=== PATIENT | female | born 1975 | race Caucasian/White ===

== ENCOUNTER 2019-09-23 07:52 | Emergency (ER) | payer BC, SELFPAY ==
[2019-09-23 08:01] VITALS: BP 155/104; PULSE 140; RESP 18; TEMP 36.7; O2SAT 100; BMI 27.8
--- NOTE | 2019-09-23 08:05 | W.ED.GENADLT ---
HPI - General Adult General: Chief complaint: Shortness of Breath/Dyspnea Stated complaint: SOB Time Seen by Provider: 09/23/19 08:04 Source: patient Mode of arrival: ambulatory Limitations: no limitations History of Present Illness: HPI narrative: Patient comes in this morning with complaints of shortness of breath. Patient states that she has had 2 episodes of shortness of breath this morning 1 that was short when she first got up. She was then able to get up and get around without any difficulty and then as walking up the stairs to come to work she felt increased shortness of breath again. Patient appears anxious. Patient appears in mild to moderate discomfort. Patient is tachycardic with elevated blood pressure. Patient denies any previous episodes of PSVT or WPW. Patient does take routine control, and is at a sedentary job, denies any recent fever or illness. Patient reports on father's side has extensive heart disease with him having first heart attack at 45. Associated symptoms: Reports dyspnea Review of Systems General: Reports: 10 or more systems reviewed and unremarkable except in HPI and below Resp: Reports: shortness of breath [facility] PFSH: Social History Smoking and tobacco status: never smoked Physical Exam Const: COMMON NORMALS: no apparent distress and oriented x3 GENERAL APPEARANCE: cooperative HENMT: COMMON NORMALS: normocephalic, TM's normal bilaterally and external nose normal HEAD & SCALP: normal to inspection and normocephalic NOSE: external nose normal TYMPANIC MEMBRANE: TM's normal bilaterally MOUTH: oral and palatal mucosa normal THROAT: posterior oropharynx normal Eye: GENERAL EYE: normal appearance of both eyes Neck/C-Spine: COMMON NORMALS: full ROM Lymph: LYMPHATIC: no lymphadenopathy noted Chest: COMMONS NORMALS: inspection of chest normal Resp: COMMON NORMALS: normal respiratory effort EFFORT & INSPECTION: Yes able to speak in complete sentences Cardio: COMMON NORMALS: regular rhythm RATE: tachycardic RHYTHM: regular rhythm GI: COMMON NORMALS: non-tender : COMMON NORMALS: Yes no CVA tenderness BLADDER/KIDNEY EXAM: Yes no CVA tenderness Back/Pelvis: COMMON NORMALS: no CVA tenderness and thoracic and lumbar spine normal to inspection Extremity: COMMON NORMALS: normal to inspection Neuro: COMMON NORMALS: oriented x3 and moves all extremities Psych: COMMON NORMALS: mental status grossly normal and cooperative Skin: COMMON NORMALS: no rashes or lesions noted GENERAL SKIN EXAM: no rashes or lesions noted Course ED course: 1000, patient given 2.5 metoprolol for sinus tach, rate after 15 minutes down to 100's, repeat of 5 mg, PE scan negative, first troponin negative. wjw Vital Signs: Vital signs: Vital Signs Temperature 98.1 F 09/23/19 08:01 Pulse Rate 140 H 09/23/19 08:01 Respiratory Rate 18 09/23/19 08:01 Blood Pressure 155/104 09/23/19 08:01 Pulse Oximetry 100 09/23/19 08:01 MDM - General Adult MDM Narrative: Medical decision making narrative: 44-year-old female comes in today with complaints of chest discomfort and shortness of breath. Exam notes sinus tachycardia with rate of 140s to 150s. No edema is noted in the extremities. Skin is warm and dry. Abdomen soft nontender. Differential diagnosis includes infection, ACS, PE, idiopathic sinus tachycardia. CTA scan of the chest noted no PE or other abnormalities. First and 2-hour troponins were negative. CBC was normal without any signs of anemia. CMP showed a increase and glucose but otherwise normal. Reviewed exam with patient recommended treatment with increasing her metoprolol from 50 to 75 mg. Recommend follow-up with cardiology for further treatment and evaluation. Reviewed reasons to return to the ER. Patient reports understanding agreed to plan. Lab Data: Labs: Lab Results 09/23/19 09/23/19 09/23/19 Range/Units 08:10 08:10 08:25 WBC (4.0-10.0) 10^3/ uL RBC (4.1-5.3) 10^6/u L Hgb (11.5-15.3) g/dL Hct (37.0-47.0) % MCV (81-99) fL MCH (28.0-34.0) pg MCHC (30.0-36.0) g/dL RDW (12.1-15.1) % Plt Count (130-400) 10^3/c mm MPV (7.4-10.4) fL Neut % (Auto) % Lymph % (Auto) % [place] % (Auto) % Eos % (Auto) % Baso % (Auto) % Neut # (Auto) (1.8-7.7) 10^3/u L Lymph # (Auto) (0.8-4.8) 10^3/u L [place] # (Auto) (0.2-0.9) 10^3/u L Eos # (Auto) (0.0-0.8) 10^3/u L Baso # (Auto) (0.0-0.1) 10^3/u L Nucleated RBC % (a uto) % Nucleated RBCs # /100WBC PT 12.70 (10.5-13.3) SECO NDS INR 0.92 (0.8-1.2) APTT 33.4 (23.9-36.7) SECO NDS D-Dimer (0-0.59) ug/mIFE U Sodium (136-145) mmol/L Potassium (3.5-5.1) mmol/L Chloride (98-107) mmol/L Carbon Dioxide (22-29) mmol/L Anion Gap (5-19) BUN (6-20) mg/dL Creatinine (0.5-0.9) mg/dL GFR Calculation (90-130) mL/min Glucose (65-115) mg/dL Calculated Osmolal ity (285-295) mOsm/k g Calcium (8.5-10.5) mg/dL Total Bilirubin (0.15-1.2) mg/dL AST (0-32) U/L ALT (0-33) U/L Alkaline Phosphata se (35-105) IU/L Troponin T Baselin e (0-10) ng/mL Troponin T 120 Min kanchan (0-10) ng/mL Delta Troponin T (0-10) ABS# Total Protein (6.6-8.7) g/dL Albumin (3.5-5.2) g/dL Globulin (1.3-4.6) g/dL TSH (0.27-4.20) uIU/ mL Urine Color Colorless (Yellow) Urine Appearance Clear (CLEAR) Urine pH 5.0 (5-7) Ur Specific Gravit y 1.010 (1.005-1.030) Urine Protein Neg (Negative) Urine Glucose (UA) Norm (Normal) Urine Ketones Negative (Negative) Urine Blood Neg (Negative) Urine Nitrate Negative (Negative) Urine Bilirubin Neg (NEGATIVE) Urine Urobilinogen Norm (Negative) mg/dL Ur Leukocyte Dee [place] Negative (Negative) Urine Opiates Scre en Negative (Negative) ng/mL Ur Barbiturates Sc reen Negative (Negative) ng/mL Ur Phencyclidine S crn Negative (Negative) ng/mL Ur Amphetamines Sc reen Negative (Negative) ng/mL U Benzodiazepines Scrn Negative (Negative) ng/mL Urine Cocaine Scre en Negative (Negative) ng/mL U Marijuana (THC) Screen Negative (Negative) ng/mL 09/23/19 09/23/19 09/23/19 Range/Units 08:25 08:28 08:28 WBC 7.3 (4.0-10.0) 10^3/ uL RBC 4.93 (4.1-5.3) 10^6/u L Hgb 14.7 (11.5-15.3) g/dL Hct 43.8 (37.0-47.0) % MCV 88.8 (81-99) fL MCH 29.8 (28.0-34.0) pg MCHC 33.6 (30.0-36.0) g/dL RDW 12.6 (12.1-15.1) % Plt Count 252 (130-400) 10^3/c mm MPV 9.7 (7.4-10.4) fL Neut % (Auto) 64.0 % Lymph % (Auto) 27.9 % [place] % (Auto) 6.6 % Eos % (Auto) 0.0 % Baso % (Auto) 0.1 % Neut # (Auto) 4.6 (1.8-7.7) 10^3/u L Lymph # (Auto) 2.0 (0.8-4.8) 10^3/u L [place] # (Auto) 0.5 (0.2-0.9) 10^3/u L Eos # (Auto) 0.0 (0.0-0.8) 10^3/u L Baso # (Auto) 0.0 (0.0-0.1) 10^3/u L Nucleated RBC % (a uto) 0 % Nucleated RBCs # 0.0 /100WBC PT (10.5-13.3) SECO NDS INR (0.8-1.2) APTT (23.9-36.7) SECO NDS D-Dimer (0-0.59) ug/mIFE U Sodium 141 (136-145) mmol/L Potassium 4.1 (3.5-5.1) mmol/L Chloride 105 (98-107) mmol/L Carbon Dioxide 21 L (22-29) mmol/L Anion Gap 19.1 H (5-19) BUN 11 (6-20) mg/dL Creatinine 0.7 (0.5-0.9) mg/dL GFR Calculation 91.3 (90-130) mL/min Glucose 156 H (65-115) mg/dL Calculated Osmolal ity 291 (285-295) mOsm/k g Calcium 9.8 (8.5-10.5) mg/dL Total Bilirubin 0.3 (0.15-1.2) mg/dL AST 17 (0-32) U/L ALT 29 (0-33) U/L Alkaline Phosphata se 64 (35-105) IU/L Troponin T Baselin e (0-10) ng/mL Troponin T 120 Min kanchan (0-10) ng/mL Delta Troponin T (0-10) ABS# Total Protein 7.3 (6.6-8.7) g/dL Albumin 4.7 (3.5-5.2) g/dL Globulin 2.6 (1.3-4.6) g/dL TSH 2.87 (0.27-4.20) uIU/ mL Urine Color (Yellow) Urine Appearance (CLEAR) Urine pH (5-7) Ur Specific Gravit y (1.005-1.030) Urine Protein (Negative) Urine Glucose (UA) (Normal) Urine Ketones (Negative) Urine Blood (Negative) Urine Nitrate (Negative) Urine Bilirubin (NEGATIVE) Urine Urobilinogen (Negative) mg/dL Ur Leukocyte Dee a[place] (Negative) Urine Opiates Scre en (Negative) ng/mL Ur Barbiturates Sc reen (Negative) ng/mL Ur Phencyclidine S crn (Negative) ng/mL Ur Amphetamines Sc reen (Negative) ng/mL U Benzodiazepines Scrn (Negative) ng/mL Urine Cocaine Scre en (Negative) ng/mL U Marijuana (THC) Screen (Negative) ng/mL 09/23/19 09/23/19 09/23/19 Range/Units 08:28 08:28 10:44 WBC (4.0-10.0) 10^3/ uL RBC (4.1-5.3) 10^6/u L Hgb (11.5-15.3) g/dL Hct (37.0-47.0) % MCV (81-99) fL MCH (28.0-34.0) pg MCHC (30.0-36.0) g/dL RDW (12.1-15.1) % Plt Count (130-400) 10^3/c mm MPV (7.4-10.4) fL Neut % (Auto) % Lymph % (Auto) % [place] % (Auto) % Eos % (Auto) % Baso % (Auto) % Neut # (Auto) (1.8-7.7) 10^3/u L Lymph # (Auto) (0.8-4.8) 10^3/u L [place] # (Auto) (0.2-0.9) 10^3/u L Eos # (Auto) (0.0-0.8) 10^3/u L Baso # (Auto) (0.0-0.1) 10^3/u L Nucleated RBC % (a uto) % Nucleated RBCs # /100WBC PT (10.5-13.3) SECO NDS INR (0.8-1.2) APTT (23.9-36.7) SECO NDS D-Dimer <= 0.27 (0-0.59) ug/mIFE U Sodium (136-145) mmol/L Potassium (3.5-5.1) mmol/L Chloride (98-107) mmol/L Carbon Dioxide (22-29) mmol/L Anion Gap (5-19) BUN (6-20) mg/dL Creatinine (0.5-0.9) mg/dL GFR Calculation (90-130) mL/min Glucose (65-115) mg/dL Calculated Osmolal ity (285-295) mOsm/k g Calcium (8.5-10.5) mg/dL Total Bilirubin (0.15-1.2) mg/dL AST (0-32) U/L ALT (0-33) U/L Alkaline Phosphata se (35-105) IU/L Troponin T Baselin e 6 (0-10) ng/mL Troponin T 120 Min kanchan 6.00 (0-10) ng/mL Delta Troponin T 0 (0-10) ABS# Total Protein (6.6-8.7) g/dL Albumin (3.5-5.2) g/dL Globulin (1.3-4.6) g/dL TSH (0.27-4.20) uIU/ mL Urine Color (Yellow) Urine Appearance (CLEAR) Urine pH (5-7) Ur Specific Gravit y (1.005-1.030) Urine Protein (Negative) Urine Glucose (UA) (Normal) Urine Ketones (Negative) Urine Blood (Negative) Urine Nitrate (Negative) Urine Bilirubin (NEGATIVE) Urine Urobilinogen (Negative) mg/dL Ur Leukocyte Dee a[place] (Negative) Urine Opiates Scre en (Negative) ng/mL Ur Barbiturates Sc reen (Negative) ng/mL Ur Phencyclidine S crn (Negative) ng/mL Ur Amphetamines Sc reen (Negative) ng/mL U Benzodiazepines Scrn (Negative) ng/mL Urine Cocaine Scre en (Negative) ng/mL U Marijuana (THC) Screen (Negative) ng/mL EKG Data^: EKG 1: Attestation: I personally reviewed and interpreted this EKG as follows: (0823, sinus tach regular rate in 128, no ectopy or ST elevation, short MS noted) Computer generated interpretation: Chest X-Ray 09/23/19 08:10 IMPRESSION: Normal chest Chest CTA 09/23/19 08:20 IMPRESSION: 1. No evidence of pulmonary embolus. 2. Lungs are well aerated. No acute pulmonary infiltrates. 3. No mediastinal or hilar lymphadenopathy. EKG 2: Attestation: I personally reviewed and interpreted this EKG as follows: (1104, sinus tach, rate regular at 109, no ST elevation, no ectopy) Computer generated interpretation: Chest X-Ray 09/23/19 08:10 IMPRESSION: Normal chest Chest CTA 09/23/19 08:20 IMPRESSION: 1. No evidence of pulmonary embolus. 2. Lungs are well aerated. No acute pulmonary infiltrates. 3. No mediastinal or hilar lymphadenopathy. Discharge Plan Discharge Patient Disposition: Home, Self-Care Clinical Impression: Sinus tachycardia Condition: Stable Prescriptions: New metoprolol succinate 25 mg capsule,sprinkle,ER 24hr 25 mg PO DAILY Qty: 30 RF: 0 No Action metoprolol succinate 50 mg Tablet Extended Release 24 Hr 50 mg PO DAILY RF: 0 aspirin 81 mg Tablet,Delayed Release (Dr/Ec) 81 mg PO DAILY RF: 0 Xanax 0.5 mg Tablet 0.5 mg PO BID PRN (Reason: Anxiety) RF: 0 Vitamin C 500 mg Tablet 500 mg PO BID RF: 0 Seroquel 50 mg Tablet 75 mg PO BEDTIME RF: 0 Fish Oil 1,000 mg (120 mg-180 mg) Capsule 1 cap PO BID RF: 0 Discharge Orders: Discharge Order (Routine); Ordered 09/23/19 Ordered By: Giuseppe Mojica Referrals: Lalitha Reese DPM [Primary Care Provider] - Florina Ibarra APN [Family Provider] - Discharge Diet: Usual diet Discharge Activity: Increase activity as tolerated Patient Instructions: Chest Pain (ED) Activity Restrictions/Additional Instructions: Home and rest. Activity as tolerated. Avoid caffeine and nicotine. Drink plenty of water. Return to the emergency room for chest pain, or worsening symptoms. Follow-up with primary care in 1 week. Case management will contact you regarding cardiology appointment follow-up. Coding Level of Care Code ED [employer] Instructor for Rhonda Fwrashel Exam Comprehensive
--- NOTE | 2019-09-23 08:07 | ECG_ITS ---
Measurements Intervals [place] Rate: 128 P: 51 MI: 116 QRS: 54 QRSD: 86 T: 42 QT: 334 QTc: 489 SINUS TACHYCARDIA WITH SHORT MI INTERVAL MODERATE ST DEPRESSION [0.05+ mV ST DEPRESSION] No previous ECG available for comparison Electronically Signed On 09-23-2019 15:00:16 CDT by Flavio Singh M.D. [email or web address] f
--- NOTE | 2019-09-23 08:10 | XR_ITS ---
WS: [id number] CHEST XRAY TECHNIQUE: Portable chest. CLINICAL INFORMATION: sob FINDINGS: Heart: Normal cardiac silhouette. Lungs: Lungs are clear. No consolidation or pleural effusion. Bones: Normal visualized bony structures. XR/XR chest 1V portable [id number] IMPRESSION: Normal chest
--- NOTE | 2019-09-23 08:20 | CT_ITS ---
WS: [id number] CTA OF THE CHEST WITH PULMONARY EMBOLISM PROTOCOL TECHNIQUE: High-resolution contrast enhanced CTA of the chest with coronal and sagittal reformatted i mages with pulmonary embolism protocol. MIP images are also reviewed. CLINICAL INFORMATION: sob, tachycardia COMPARISON: None. DLP: 605.[address] scans at [facility] use at least one of these dose optimization techniques: automat ed exposure control; mA and/or kV adjustment per patient size (includes targeted exams where dose is matched to clinical indication); or iterative reconstruction. FINDINGS: Proximal main pulmonary arteries are normal. Normal segmental and subsegmental pulmonary arteries. No evidence of pulmonary embolus. Lungs are well aerated. No acute pulmonary infiltrates. No pleural fluid. No mediastinal or hilar lym phadenopathy. Normal thoracic aorta. Adrenal glands are normal. CT/CT angio chest PE protcl [id number] IMPRESSION: 1. No evidence of pulmonary embolus. 2. Lungs are well aerated. No acute pulmonary infiltrates. 3. No mediastinal or hilar lymphadenopathy.
[2019-09-23 08:40] LABS: Basophils % 0.1 %; Hematocrit 43.8 % (37.0-47.0); Hemoglobin 14.7 g/dL (11.5-15.3); Lymphocytes % 27.9 %; Mean Corpuscular HGB Conc 33.6 g/dL (30.0-36.0); Mean Corpuscular Hemoglobin 29.8 pg (28.0-34.0); Mean Corpuscular Volume 88.8 fL (81-99); Mean Platelet Volume 9.7 fL (7.4-10.4); Monocytes # 0.5 10^3/uL (0.2-0.9); Monocytes % 6.6 %; Neutrophils # 4.6 10^3/uL (1.8-7.7); Nucleated Red Blood Cells % 0 %; Platelet Count 252 10^3/cmm (130-400); Red Blood Count 4.93 10^6/uL (4.1-5.3); Red Cell Distribution Width 12.6 % (12.1-15.1); White Blood Count 7.3 10^3/uL (4.0-10.0)
[2019-09-23 08:53] LABS: D Dimer <= 0.27 ug/mIFEU (0-0.59)
[2019-09-23 08:55] LABS: Alanine Aminotransferase 29 U/L (0-33); Albumin Level 4.7 g/dL (3.5-5.2); Alkaline Phosphatase 64 IU/L (35-105); Anion Gap 19.1 (5-19); Aspartate Amino Transferase 17 U/L (0-32); Blood Urea Nitrogen 11 mg/dL (6-20); Calcium 9.8 mg/dL (8.5-10.5); Carbon Dioxide 21 mmol/L (22-29); Chloride 105 mmol/L (98-107); Globulin 2.6 g/dL (1.3-4.6); Glomerular Filtration Rate 91.3 mL/min (90-130); Glucose 156 mg/dL (65-115); Osmolality Calculated 291 mOsm/kg (285-295); Potassium 4.1 mmol/L (3.5-5.1); Sodium 141 mmol/L (136-145); Total Bilirubin 0.3 mg/dL (0.15-1.2); Total Protein 7.3 g/dL (6.6-8.7)
[2019-09-23 08:57] LABS: Troponin(5th) Baseline 6 ng/mL (0-10)
[2019-09-23 09:02] LABS: Add Urine Microscopic? NO
[2019-09-23 09:05] LABS: Bilirubin Urine Neg (NEGATIVE); Blood Urine Neg (Negative); Glucose Urine UA Norm (Normal); Ketones Urine Negative (Negative); Leukocyte Esterase Urine Negative (Negative); Nitrate Urine Negative (Negative); Protein Urine Neg (Negative); Urine Appearance Clear (CLEAR); Urine Color Colorless (Yellow); Urobilinogen Urine Norm (Negative)
[2019-09-23 09:14] LABS: Amphetamines Screen Urine Negative (Negative); Barbiturates Screen Urine Negative (Negative); Benzodiazepines Screen Urine Negative (Negative); Cocaine Screen Urine Negative (Negative); Opiate Screen Urine Negative (Negative); PCP Screen Urine Negative (Negative); THC Screen Urine Negative (Negative)
[2019-09-23] MEDS: iohexol 350 mg/mL 100 mL Btl IV (09:18)
[2019-09-23] MEDS: metoprolol tartrate 1 mg/1 mL SDV 5 mL 2.5 MG IV ×2 (09:46→11:03)
[2019-09-23 10:01] LABS: INR 0.92 (0.8-1.2)
[2019-09-23 10:02] LABS: Partial Thromboplastin Time 33.4 SECONDS (23.9-36.7)
--- NOTE | 2019-09-23 10:07 | ECG_ITS ---
Measurements Intervals [place] Rate: 109 P: 50 ID: [id number] QRS: 28 QRSD: 85 T: 14 QT: 322 QTc: 434 SINUS TACHYCARDIA POSSIBLE LEFT ATRIAL ENLARGEMENT [-0.1mV P WAVE IN V1/V2] LOW QRS VOLTAGE IN PRECORDIAL LEADS [QRS DEFLECTION < 1.0 mV IN CHEST LEADS] ABNORMAL RHYTHM ECG No previous ECG available for comparison Electronically Signed On 09-23-2019 15:03:50 CDT by Flavio Singh M.D. [id number] f
[2019-09-23 10:21] LABS: Thyroid Stimulating Hormone 2.87 uIU/mL (0.27-4.20)
[2019-09-23 10:35] VITALS: BP 144/68; PULSE 130; RESP 18; O2SAT 98
[2019-09-23 11:41] LABS: Troponin 5 2HR Delta 0 ABS# (0-10)
[2019-09-23 12:05] VITALS: PULSE 105; RESP 18; O2SAT 96
[2019-09-23 13:23] VITALS: BP 123/90; PULSE 101; RESP 16; TEMP 37; O2SAT 96
--- NOTE | 2019-09-26 11:44 | DCPLANNER ---
manager reimbursement had message to schedule a follow up appointment for patient with [facility]. manager reimbursement called [facility], spoke with Cindy, gave clinic patients information. A follow up appointment was scheduled for Saturday, October 05, 2019 at 1:[address] Watts. manager reimbursement was unable to speak with patient at this time a voicemail was left for patient regarding the appointment information.
--- NOTE | 2019-10-25 07:51 | DCPLANNER ---
Patents appointment scheduled for 10.05.19 with [facility], was cancelled.
== END 2019-09-23 13:00 | disposition home or self-care (01) ==
PROVIDERS: Emergency Provider Nurse Practitioner Family; Family Provider Nurse Practitioner; PCP Nurse Practitioner
DX: R00.0 Tachycardia, unspecified (principal); Z79.82 Long term (current) use of aspirin
CPT/HCPCS: 12345; 36415; 71045; 71275; 80053; 80306; 81003; 84443; 84484; 85025; 85378; 85610; 85730; 93005; 96374; 96375; 99283; J3490; Q9967